=== PATIENT | female | born 1970 | race Caucasian/White ===

== ENCOUNTER 2018-12-12 13:42 | Outpatient (CLI) | payer BC, SELFPAY ==
[2018-12-12 14:03] LABS: Bilirubin Negative (Negative); Blood Negative (Negative); Clarity Clear; Glucose Negative (Negative); Ketones Negative (Negative); Leukocyte Esterase Small (Negative); Nitrite Negative (Negative); Specific Gravity 1.015 (1.005-1.025); Urobilinogen 0.2 EU/dL (Up TO 0.2); pH 6.5 (5-8)
[2018-12-12 14:15] LABS: Bacteria Few HPF (Negative); C & S Indicated? C&S Done As Ordered; Casts Negative LPF (Negative); Crystals Negative HPF (Negative); Epithelial Cells Few HPF (Negative); Mucus Negative (Negative); RBC Negative (0-2)
== END 2018-12-12 14:02 ==
PROVIDERS: PCP Family Medicine; Visit Provider Obstetrics & Gynecology
DX: N30.10 Interstitial cystitis (chronic) without hematuria (principal); R10.2 Pelvic and perineal pain
CPT/HCPCS: 81003; 81015; 87086

== ENCOUNTER 2019-05-28 15:19 | Outpatient (CLI) | payer BC, SELFPAY ==
--- NOTE | 2019-05-28 15:18 | DI.RAD_ITS ---
EXAM: XR HIP LT AP LAT ONLY INDICATION: worsening deep left hip pain. COMPARISON: PELVIS AP from 06/22/2016 PELVIS AP from 07/08/2016 PELVIS AP from 07/08/2016 TECHNIQUE: 2D digital imaging was performed. FINDINGS: There has been no change in the alignment of the left hip prosthesis. No new bony lucencies are see n.
== END 2019-05-28 15:39 ==
PROVIDERS: PCP Family Medicine; Visit Provider Student in an Organized Health Care Education/Training Program
DX: M25.552 Pain in left hip (principal); Z96.642 Presence of left artificial hip joint
CPT/HCPCS: 73502

== ENCOUNTER 2019-08-09 07:00 | Outpatient (CLI) | payer BC, SELFPAY ==
--- NOTE | 2019-08-09 | DI.RAD_ITS ---
EXAM: RF JOINT INJECTION FLUORO GUID CLINICAL HISTORY: PAIN- L HIP INJ UNDER FLUORO,m70.62 TECHNIQUE: COMPARISON: No exams were available for comparison FINDINGS: Fluoroscopy was utilized by Dr. Chan during left hip injection. Hard copy shows needle placement adjacent to THR on the left. IMPRESSION:
[2019-08-09] MEDS: methylPREDNISolone ACETATE 80 MG/ML VIAL IM (14:29)
[2019-08-09] MEDS: Bupivacaine 0.5% Pres-Free 10 ML VIAL 6 ML IJ (14:30)
--- NOTE | 2019-08-09 14:38 | W.PROCNOTE ---
Date of service: 08/09/19 Time of Service: 13:38 Procedure Note Date of procedure: 08/09/19 Procedure: Left hip aspiration and injection Surgeon/Proceduralist/Physician: Sarthak Chan Procedure Diagnosis: Left Hip pain after hip replacement Procedure Indications: Veronica has had persistent pain of the LEFT hip and groin. Noninvasive measures have been tried. To serve as both diagnostic and therapeutic, an injection under fluoroscopy was recommended. I also would attempt an aspiration at the same time if there was fluid available. I had discussed the risks of the procedure and the patient elected to proceed. Procedure Description: Veronica was greeted in the flouroscopy room. The correct side was identified and the consent was reviewed with the patient and signed. The patient was then placed in the supine position on the fluoroscopy table. The LEFT hip was then prepped with Chloraprep. The anterolateral injection starting point was identiifed by bony landmarks and fluoroscopy. The skin and soft tissue in the tract of the injection was anesthetized with 1% Lidocaine. A spinal needle was then inserted deep into the hip joint at the level of the lateral femoral neck under fluoroscopic guidance. The needle was able to contact the metal surface for tactile confirmation of correct positioning. I was then able to withdraw some joint fluid and send 2 cc of thick and joint fluid to the lab. It was not grossly purulent but it was thicker than I would expect with blood tinge. Next, the hip was injected with 6cc of 0.5% Bupivicaine and 80mg of Depo-Medrol. A bandaid was placed on the injection site. The patient tolerated the procedure well and noted improvement in pre-injection pain.
[2019-08-09 15:35] LABS: Clarity CLOUDY; Nucleated Cells 7091 /MM3 (0-0)
[2019-08-09 15:43] LABS: Mononuclear Cells 77 % (0-0); Polynuclear Cells 23 % (0-0)
== END 2019-08-09 07:20 ==
PROVIDERS: PCP Radiology Radiation Oncology; Visit Provider Student in an Organized Health Care Education/Training Program
DX: T84.84XA Pain due to internal orthopedic prosthetic devices, implants and grafts, initial encounter; Z96.642 Presence of left artificial hip joint; M25.552 Pain in left hip
CPT/HCPCS: 20610; 77002; 87070; 87205; 89051; J1040

== ENCOUNTER 2020-01-14 15:40 | Outpatient (CLI) | payer BC, SELFPAY ==
--- NOTE | 2020-01-14 15:00 | DI.RAD_ITS ---
EXAM: XR KNEE RT 3V AP,LAT,POPPY INDICATION: right knee pain. COMPARISON: No exams were available for comparison TECHNIQUE: 2D digital imaging was performed. FINDINGS: The femoral tibial joint spaces are well maintained. Chondrocalcinosis is seen. There is mild erik articular spurring. A screw is noted in the tibial tubercle. There is severe narrowing of the media l patellofemoral joint. There are adjacent calcifications. Calcification is seen in the suprapatell ar region. IMPRESSION: Severe patellofemoral degenerative changes. Chondrocalcinosis. DATA REPOSITORY: RADIATION DOSE DELIVERED:
== END 2020-01-14 16:00 ==
PROVIDERS: PCP Radiology Radiation Oncology; Visit Provider Physician Assistant Surgical
DX: M25.561 Pain in right knee (principal); M22.2X1 Patellofemoral disorders, right knee; M11.261 Other chondrocalcinosis, right knee
CPT/HCPCS: 73562

== ENCOUNTER 2020-07-01 14:06 | Outpatient (CLI) | payer BC, SELFPAY ==
--- NOTE | 2020-07-01 13:30 | DI.RAD_ITS ---
EXAM: XR STANDING ALIGNMENT and XR knee RT 1 V CLINICAL HISTORY: PRE OP R TKA. TECHNIQUE: 2D digital imaging was performed. COMPARISON: CR XR KNEE RT 3V AP,LAT,POPPY from 01/14/2020 CR XR KNEE RT 1V from 07/01/2020 FINDINGS: The patient has a left total hip replacement. The right hip is well maintained. The left knee shows mild degenerative changes with periarticular spurring in the lateral femoral tibial joint. Marked d egenerative changes are again seen in the right knee with joint space narrowing and periarticular spu rring. Chondrocalcinosis is present. There is again seen a single screw in the anterior tibial tube rcle. There is an ossified density again seen in the suprapatellar region. The ankle joints are wel l maintained. The right lower extremity measures 84.8 cm. The left lower extremity measures 85.5 cm . IMPRESSION: Stable marked degenerative changes of the right knee. DATA REPOSITORY: RADIATION DOSE DELIVERED:
== END 2020-07-01 14:26 ==
PROVIDERS: PCP Radiology Radiation Oncology; Referring Provider Radiology Radiation Oncology; Visit Provider Physician Assistant
DX: M17.11 Unilateral primary osteoarthritis, right knee (principal)
CPT/HCPCS: 73560; 77073

== ENCOUNTER 2020-07-03 00:56 | Outpatient (CLI) | payer BC, SELFPAY ==
[2020-07-03 10:43] LABS: HCT 38.5 % (36.0-46.0); HGB 12.8 g/dL (11.2-15.7); MCH 28.8 pg (27.0-33.0); MCHC 33.2 % (32.0-36.0); MCV 86.7 fL (80-95); MPV 10.2 fL (8.0-11.0); Platelet Count 236 10^3/uL (130-400); RBC 4.44 10^6/uL (3.93-5.22); RDW 12.8 % (11.7-14.6); RDW-SD 40.4 fL; WBC 4.34 10^3/uL (4.4-10.8)
[2020-07-03 11:15] LABS: BUN 14 mg/dL (7-18); CREATININE 0.86 mg/dL (0.55-1.02); Calcium 8.8 mg/dL (8.5-10.1); Chloride 103 mmol/L (98-107); Glucose 81 mg/dL (74-106); Potassium 3.9 mmol/L (3.5-5.1); Sodium 139 mmol/L (136-145)
[2020-07-04 18:53] LABS: COVID-19 RT-PCR UVMMC Result Negative (Negative)
== END 2020-07-03 01:16 ==
PROVIDERS: PCP Radiology Radiation Oncology; Visit Provider Student in an Organized Health Care Education/Training Program
DX: M25.561 Pain in right knee (principal); M17.11 Unilateral primary osteoarthritis, right knee; Z11.59 Encounter for screening for other viral diseases; Z01.818 Encounter for other preprocedural examination; Z01.812 Encounter for preprocedural laboratory examination
CPT/HCPCS: 36415; 80048; 85027; U0003

== ENCOUNTER 2020-07-08 06:16 | Day surgery (SDC) | payer BC, SELFPAY ==
[2020-07-08] VITALS (10 sets, daily range): BP systolic 103–129; BP diastolic 60–77; PULSE 53–84; RESP 16–20; TEMP 36.1–37.4; O2SAT 96–100
[2020-07-08] MEDS: Acetaminophen 500 MG TAB 1000 MG PO ×2 (06:56→14:38)
[2020-07-08] MEDS: Lactated Ringers 1,000 ML 80 ML IV (06:56)
[2020-07-08] MEDS: Gabapentin 300 MG CAP PO (06:57)
[2020-07-08] MEDS: Celecoxib 200 MG CAP 400 MG PO (06:57)
--- NOTE | 2020-07-08 07:19 | DSE_ITS ---
Documented by User: Yumiko Masxon 07/08/20 07:23 DS: Diagnosis Discharge Diagnosis (1) Right knee DJD: Status: Chronic Discharge Plan Disposition Patient Disposition: HOME Condition: Good Discharge Details Reason For Visit: Right knee DJD Attending Provider: Sarthak Chan Primary Care Provider: Viktoriya Li Home Meds and New Rx's Prescriptions: New celecoxib [Celebrex] 200 mg capsule 200 mg PO BID Qty: 60 RF: 0 aspirin 81 mg tablet,delayed release (DR/EC) 81 mg PO BID 30 Days Qty: 60 RF: 0 acetaminophen 500 mg tablet 500 mg PO Q6H PRN (Reason: pain) Qty: 60 RF: 2 pantoprazole 40 mg tablet,delayed release (DR/EC) 40 mg PO DAILY 30 Days Qty: 30 RF: 0 oxycodone 5 mg tablet 5 mg PO Q4H PRN (Reason: severe post-operative pain) Qty: 18 RF: 0 Continued Probiotic 15 billion cell capsule, sprinkle 1 cap PO DAILY RF: 0 pantoprazole 20 mg tablet,delayed release (DR/EC) 20 mg PO DAILY RF: 0 diazepam 5 MG tablet 5 - 10 mg PO Q8H PRN Qty: 30 RF: 1 hydroxyzine HCl 25 MG tablet 50 mg PO HS RF: 0 multivitamin 1 EACH capsule 1 ea PO DAILY RF: 0 L.acidoph, paracasei,B. lactis 1 EACH capsule 1 ea PO DAILY PRN PRNRF: 0 alprazolam [Xanax] 1 MG tablet 1 mg PO PRN PRNRF: 0 amitriptyline 10 mg tablet 50 mg PO HS RF: 0 Cbd Oil liquid 1 ml PO HS PRNRF: 0 Discontinued acetaminophen [Acetaminophen Extra Strength] 500 MG tablet 1,000 mg PO PRN PRNRF: 0 Discharge Instructions Additional Instructions: Total Knee Discharge Instructions Activity: The most important activity is to walk. You should try to take short walks a few times a day. It is important that when resting you work on keeping the knee straight. Avoid putting a pillow behind the knee as this will encourage flexion. Work on range of motion exercises as provided by Physical Therapy. - Start outpatient physical therapy within 2 weeks. - You should wear the IGGY hose on both legs for 2 weeks. Dressing: Keep the surgical dressing in place for at least one week. After the first week it may be removed and replace with light gauze and tape or nothing. It may get wet after 3 days but avoid soaking the dressing. If it gets wet, just lightly pat dry. Medications: - You should take Tylenol and anti-inflammatory Celebrex as your primary pain control medications. If the Celebrex is too expensive or not covered, please call the office for another alternative (Advil/Ibuprofen or Naproxen/Aleve) - You have been prescribed a stronger pain medication Oxycodone for breakthrough pain, take as needed as prescribed. - You have also been prescribed a stomach acid reduction agent Pantoprozole to help reduce stomach acid and reflux. You normally take this medication - please hold your normal pantoprozole and take this higher dose that has been prescribed. - You will be taking Aspirin 81mg twice a day for DVT prevention unless instructed otherwise. - If you have constipation you should take Colace (which was prescribed) or Miralax (which you may purchase [id number]). It takes most people 3-4 days to have a bowel movement. Follow-up: 2 weeks If you have any acute concerns or questions, please do not hesitate to contact the office at [phone]. You may contact Dr. Chan with any questions after hours through the hospital at [phone] or on his cell phone at [phone]. Referrals: Sarthak Chan MD [ [facility] STAFF PHYSICIAN] - Equipment/Supplies: Walker Activity:: Elevate Remove Dressings/Wound Care:: Do Not Remove Shower/Bathe:: 72 hours Diet:: As Tolerated Discharge Orders Discharge Orders: Discharge Order (Routine); Ordered 07/08/20 Ordered By: Sarthak Chan DS: Data Vitals/I&O Vitals and I&O: Vital Signs Temperature 36.6 C 07/08/20 06:27 Pulse 80 07/08/20 06:27 Pulse Rhythm Regular 07/08/20 06:27 Respiratory Rate 16 07/08/20 06:27 Respiratory Depth Normal 07/08/20 06:27 Blood Pressure 123/70 07/08/20 06:27 Pulse Oximetry 100 07/08/20 06:27 Oxygen Delivery Method Room Air 07/08/20 06:27 Oxygen Flow Rate 0 07/08/20 06:27 Pain Level 0 07/08/20 06:27 Intake & Output 07/07/20 07/07/20 07/08/20 11:59 23:59 11:59 Weight 56.5 kg [facility] Medical History Anxiety and depression Asthma Chronic low back pain Congenital hip dysplasia left Endometriosis GERD (gastroesophageal reflux disease) 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 gender identity: female Do you feel safe at home: Yes Do you feel safe in your relationship?: Yes Documented by User: Sarthak Chan MD 07/08/20 13:31 Date of service: 07/08/20 Time of Service: 13:29 Discharge Plan Disposition Patient Disposition: HOME Condition: Good Discharge Details Reason For Visit: Right knee DJD Attending Provider: Sarthak Chan Primary Care Provider: Viktoriya Li Home Meds and New Rx's Prescriptions: New celecoxib [Celebrex] 200 mg capsule 200 mg PO BID Qty: 60 RF: 0 aspirin 81 mg tablet,delayed release (DR/EC) 81 mg PO BID 30 Days Qty: 60 RF: 0 acetaminophen 500 mg tablet 500 mg PO Q6H PRN (Reason: pain) Qty: 60 RF: 2 pantoprazole 40 mg tablet,delayed release (DR/EC) 40 mg PO DAILY 30 Days Qty: 30 RF: 0 oxycodone 5 mg tablet 5 mg PO Q4H PRN (Reason: severe post-operative pain) Qty: 18 RF: 0 Continued Probiotic 15 billion cell capsule, sprinkle 1 cap PO DAILY RF: 0 pantoprazole 20 mg tablet,delayed release (DR/EC) 20 mg PO DAILY RF: 0 diazepam 5 MG tablet 5 - 10 mg PO Q8H PRN Qty: 30 RF: 1 hydroxyzine HCl 25 MG tablet 50 mg PO HS RF: 0 multivitamin 1 EACH capsule 1 ea PO DAILY RF: 0 L.acidoph, paracasei,B. lactis 1 EACH capsule 1 ea PO DAILY PRN PRNRF: 0 alprazolam [Xanax] 1 MG tablet 1 mg PO PRN PRNRF: 0 amitriptyline 10 mg tablet 50 mg PO HS RF: 0 Cbd Oil liquid 1 ml PO HS PRNRF: 0 Discontinued acetaminophen [Acetaminophen Extra Strength] 500 MG tablet 1,000 mg PO PRN PRNRF: 0 Discharge Instructions Additional Instructions: Total Knee Discharge Instructions Activity: The most important activity is to walk. You should try to take short walks a few times a day. It is important that when resting you work on keeping the knee straight. Avoid putting a pillow behind the knee as this will encourage flexion. Work on range of motion exercises as provided by Physical T herapy. - Start outpatient physical therapy within 2 weeks. - You should wear the IGGY hose on both legs for 2 weeks. Dressing: Keep the surgical dressing in place for at least one week. After the first week it may be removed and replace with light gauze and tape or nothing. It may get wet after 3 days but avoid soaking the dressing. If it gets wet, just lightly pat dry. Medications: - You should take Tylenol and anti-inflammatory Celebrex as your primary pain control medications. If the Celebrex is too expensive or not covered, please call the office for another alternative (Advil/Ibuprofen or Naproxen/Aleve) - You have been prescribed a stronger pain medication Oxycodone for breakthrough pain, take as needed as prescribed. - You have also been prescribed a stomach acid reduction agent Pantoprozole to help reduce stomach acid and reflux. You normally take this medication - please hold your normal pantoprozole and take this higher dose that has been prescribed. - You will be taking Aspirin 81mg twice a day for DVT prevention unless instructed otherwise. - If you have constipation you should take Colace (which was prescribed) or Miralax (which you may purchase [id number]). It takes most people 3-4 days to have a bowel movement. Follow-up: 2 weeks If you have any acute concerns or questions, please do not hesitate to contact the office at [phone]. You may contact Dr. Chan with any questions after hours through the hospital at [phone] or on his cell phone at [phone]. Referrals: Sarthak Chan MD [ [facility] STAFF PHYSICIAN] - Equipment/Supplies: Walker Activity:: Elevate Remove Dressings/Wound Care:: Do Not Remove Shower/Bathe:: 72 hours Diet:: As Tolerated Discharge Orders Discharge Orders: Discharge Order (Routine); Ordered 07/08/20 Ordered By: Sarthak Chan DS: Summary Status at Discharge Functional status at discharge: uses cane/walker Overall status at discharge: patient is progressing back to baseline Mental Status: mental status grossly normal Speech and Movement: speech and movement normal Mood: congruent mood Affect: normal affect Exam Psych Mental Status: mental status grossly normal Speech and Movement: speech and movement normal Mood: congruent mood Affect: normal affect [facility] Medical History Anxiety and depression Asthma Chronic low back pain Congenital hip dysplasia left Endometriosis GERD (gastroesophageal reflux disease) 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
[2020-07-08] MEDS: ceFAZolin 2 GM/50 ML BAG IVPB (07:29)
[2020-07-08] MEDS: Bupivacaine 0.25% Pres-Free 30 ML VIAL (08:52)
[2020-07-08] MEDS: Ketorolac 30 MG/ML VIAL (08:52)
[2020-07-08] MEDS: Bupivacaine LIPOSOME/PF 133 MG/10 ML VIAL IJ (08:52)
[2020-07-08] MEDS: Normal Saline 50 ML (08:52)
--- NOTE | 2020-07-08 13:06 | PT.INIE ---
Date of service: 07/08/20 Time of Service: 13:06 PT Notes Visit Reasons: Right knee DJD Physical Therapy Inpatient Initial Evaluation Date: 07/08/2020 Referring Doctor: SKYE Martinez PT Orders: PT CONSULT: Status post Ortho surgery Precautions: Fall. Standard. Patient Profile/Admitting Diagnosis: Veronica is a 49-year-old female with degenerative joint disease of the right knee and is status post right total knee arthroplasty on postoperative day 0. PMHX: Medical History (Updated 07/01/20 @ 09:25 by Yumiko Dill) Anxiety and depression Asthma Chronic low back pain Congenital hip dysplasia left Endometriosis Right knee DJD Surgical History (Updated 07/01/20 @ 13:16 by Yumiko Dill) Colonoscopy - MAC (01/07/17) diskectomy L4,5 EGD - MAC (01/07/17) Hx of dilation and curettage S/P right knee arthroscopy Ankur procedure Total replacement of hip Left Social History/Home Situation: Lives with and 2 sons in a private home with 4 steps to enter with both rails. He has another flight of steps to the bedroom with a rail on the left side going up. Independent with all aspects of ADLs prior to surgery. 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 Equipment Owned/DME: FWW, JOANIE, S[employer] Subjective: Agreeable to PT consult. Reports pain on the medial side of her knee joint during supine to sit but diminished with ambulation activity. Complained of being mildly lightheaded but was able to tolerate mobility assessment on level surface and on the steps. Objective: General Observation: LAURA wraps to R LE. Cryocuff to R knee. TEDS on L leg. IV access to L UE. NUrse Encinas present throughout session. Mental Status: Alert and orientexd x 4 Pain: 3-4/10 in R knee initially Vital Signs: WNL limits before, durin, and immediately after session as monitored by Nurse Encinas ROM: Right Upper Extremity: Shoulder Flexion WFL. Shoulder abduction WFL. Elbow flexion WFL. Wrist flexion WFL. Opening and closing of hand WFL. Left Upper Extremity: Shoulder Flexion WFL. Shoulder abduction WFL. Elbow flexion WFL. Wrist flexion WFL. Opening and closing of hand WFL. Right Lower Extremity: Hip flexion WFL. Hip abduction WFL. Knee flexion 10 to 90 degrees. Knee extension -10 degrees. Ankle dorsiflexion WFL. Ankle plantarflexion WFL. Performed x 10 leg raises with left knee extension lag of about 10 degrees. Left Lower Extremity: Hip flexion WFL. Hip abduction WFL. Knee flexion WFL. Ankle dorsiflexion WFL. Ankle plantarflexion WFL. Strength: Right Upper Extremity: Shoulder flexors 5/5. Shoulder abductors 5/5. Elbow flexors 5/5. Elbow extensors 5/5. Specialized Developer strong. Left Upper Extremity: Shoulder flexors 5/5. Shoulder abductors 5/5. Elbow flexors 5/5. Elbow extensors 5/5. Specialized Developer strong. Right Lower Extremity: Hip flexors 4/5. Hip abductors 4/5. Knee flexors 3-/5. Knee extensors 3-/5. Ankle dorsiflexors 5/5. Ankle plantarflexors 5/5. Left Lower Extremity:Hip flexors 5/5. Hip abductors 5/5. Knee flexors 5/5. Knee extensors 5/5. Ankle dorsiflexors 5/5. Ankle plantarflexors 5/5. Sensation: Intact as to pain and pressure on bilateral lower extremities. Bed Mobility/Transfers: Rolling supervision Supine to sit supervision Sit to stand contact-guard assist Stand to sit contact-guard assist Bed to chair contact-guard assist Chair to bed contact-guard assist with Gait: Guided through level surface ambulation of 200 feet with contact-guard assist of PT and wheelchair follow of nurse Encinas for safety. Step through gait pattern. Ct decreased. Stairs: Up and down 24 x 4 inch steps while holding onto 1 rail with hand-held assist of PT led report of increased discomfort and the right knee that subsided with rest. THERA EX: Patient training on seated level exercises consisting of a week use x10, seated x10, seated hip abduction/adduction, and ankle circles x20. Balance: Static Sitting: Normal Dynamic Sitting: Normal Static Standing: Fair Dynamic Standing: Fair Special Tests: Mobility Limitations Standardized Measure [facility] AM-PAC 6 clicks Basic Mobility Inpatient Short Form: Raw Score: 21 CMS Score: 29% deficit Informed Consent/Education: Patient instructed in purpose of PT consult and plan of care. Assessment: Veronica requires the use of a front-wheeled walker for all mobility ADL performance to maximize independence and reduce fall risk at home. She will benefit from outpatient physical therapy services in order to facilitate return to independent mobility performance without an assistive device. Patient presents with clinical signs and symptoms consistent with current/admitting diagnoses that have resulted to mobility limitations, gait instability, generalized weakness, and impairment of motor control as demonstrated by the following impairment level findings: 1. Decreased strength to right knee major muscle groups 2. Impaired standing balance 3. Impaired activity tolerance 4. Limitation of joint range of motion in right knee Impairments are contributing to the following functional limitations: 1. Inability to safely ambulate without assistive device 2. Increase completion time for mobility ADL performance 3. Increased fall risk 4. Inability to negotiate steps alone safely Patient is assessed as a 65827 moderate complexity based on the following: History: 49-year-old female with impairment level findings, functional limitations, and past medical history as indicated above Examination: Demonstrable impairment in strength, balance, and mobility level with underlying impairments and functional limitations as documented above Presentation:Evolving Decision Makin moderate complexity Goals: N/A. PT evaluation and 1 treatment session for mobility ADL training using the front wheeled walker and for HEP instruction. Plan of Care/Treatment Plan: N/A. PT evaluation and 1 treatment session for mobility ADL training using the front wheeled walker and for HEP instruction. DISCHARGE RECOMMENDATIONS: Home when medically cleared by orthopedic surgeon. Outpatient PT services in order to facilitate return to independent level without an assistive device and maximize functional outcomes. TREATMENT CODE/TIME: 27825 x 25 minutes, 98799 x 17 minutes beginning at 13:06 PM. Thank you for the opportunity to participate in the care of this patient. Abigail Carmona PT, DPT, CLT [facility] [place], [place]
--- NOTE | 2020-07-08 19:24 | ROE_ITS ---
Date of service: 07/08/20 Time of Service: 09:24 Operative Note Operative Note DATE OF PROCEDURE: 07/08/20 PRE-OP DIAGNOSIS: Right Knee Arthritis POST-OP DIAGNOSIS: other Right Knee Arthritis and Partial quadriceps tear PROCEDURE: Right Total Knee Replacement with repair of partial quadriceps tear SURGEON: Sarthak Chan [employer]ULT [employer] INSTRUCTOR: Yumiko Dill ANESTHESIA: regional and spinal ESTIMATED BLOOD LOSS: 200 PATHOLOGY: none sent TOURNIQUET TIME: 0 COMPLICATIONS: None Patient was transported to: PACU Patient's condition: stable Implants: 1. Depuy Attune Cementless Cruciate Retaining Femoral Component, Size 4 Narrow 2. Depuy Attune Cementless Rotating Platform Tibial Component, Size 2 3. Depuy Attune 4x6mm CR/RP Poly 4. Depuy Attune Patellar Component, Size 35mm Indications: I have seen Veronica in clinic for symptoms of knee arthritis, confirmed with radiographic findings. She has exhausted nonoperative methods and was having significant limitations in daily function and desired better function and less pain. I discussed the technical details of a knee replacement. I explained the risks of the procedure to include, but not limited to, bleeding, infection, pain, stiffness, fracture, damage to nerves and vessels, damage to muscles and tendons, loosening, need for repeat procedure, blood clot and cardiopulmonary demise. Despite these risks, Veronica elected to proceed. Findings: There was significant signs of arthritis throughout the knee. These involved all 3 compartments, the patellofemoral compartment being the worst. During exposure there was an unexpected finding off of the superior pole of the patella. There was an obvious chronic, partial tear of the quadriceps tendon off of the superior pole with the surface of the unattached tendon and the superior pole was smooth and had a bursal type surface to it. Procedure Description: Veronica was greeted in the preoperative holding area where the correct side was identified and marked. The consent was reviewed with the patient and signed. The history and physical was updated. All questions were answered. Preoperative medications were administered: Acetaminophen 1000mg, Celebrex 400mg, and Gabapentin 300mg. An adductor canal block was then administered by the anesthesia team in the PACU. Veronica was taken back to the operating room. A spinal anesthestic was then administered. The patient was placed into the supine position on the operating room table. A nonsterile tourniquet was placed high onto the leg but only used for cementing. Posts were placed for positioning during the procedure. All bony prominences were well padded. Prophylactic antibiotics in the form of Cefazolin were administered. 1g of Tranxemic Acid was given intravenously within 30 minutes of incision. The right leg was then prepped with Chloraprep and draped in a standard fashion with impervious stockinette. A second prep with Chloraprep was performed prior to application of Iodine impregnated skin protection. A timeout to confirm correct identity, side and site, procedure, allergies, anesthesia, and medical concerns was performed. With the knee in some flexion, a midline incision was made overlying the knee through the previous incision from her patella realignment procedure. Full thickness skin flaps were raised once the extensor mechanism was encountered. These were raised medially and laterally. Any bleeding was controlled with electrocautery. Once the extensor mechanism was fully exposed, a medial parapatellar arthrotomy was performed in a flexed position. All bleeding from the arthrotomy and the geniculate arteries were coagulated. A medial subperiosteal peel was performed with electrocautery to the midcoronal plane. The fat pad was removed while ke eping the patellar tendon protected. The anterior distal femur synovium was removed for later visualization. The ACL and PCL were resected and the anterior horn of the lateral meniscus was transected. The knee was then flexed with the patella everted. At this piont, there was an obvious unexpected finding at the superior pole of the patella. There was a partial tear of the quadriceps tendon where there was no attachment of the quadriceps on the superior pole of the patella. There was even some detachment from the superior half of the anterior patella. These surfaces had a glossy, thickened surface suggestive of this being a chronic injury. There wasn't any significant tendon edge seen retracted but there was a diminuitive edge centrally which likely represented the previously torn central fibers. I used a rongeur to debride the underside of the tendon and the anterior and superior aspect of the patella of all of the glossy surfaces to encourage healing from later repair. Osteophytes from around the patella were removed. Large osteophytes from the tibia were removed. Large osteophytes from the femur were removed. Using a step drill, and based on preoperative templating, the femoral canal was entered. This was done with a step drill without any difficulty. The intramedullary distal femoral cut guide was inserted, set to a 5 degree valgus cut and 9mm cut thickness. The distal femoral cut guide was then held in position and pinned. With the soft tissues protected, the distal cut was performed. This was passed over a few times to ensure a planar cut. I then turned attention to the tibia. The extramedullary guide was placed onto the leg. The distal aspect was slid medial to adjust for position of center of ankle and stay in line with shaft of the tibia. Approximately 3-5 degrees of posterior slope was kept in the proximal cutting guide. The center of the guide was aligned with the PCL. The stylus was used to assess cut thickness. The medial side, most involved side, was set for a 4mm cut. This was then held in position and pinned into place with 2 additional pins and a cross pin for stability. The medial and lateral collateral ligaments were protected and the cut was performed. With this completed, it was assessed and noted to be of appropriate dimensions. The guide was removed. A spacer block was inserted and the knee was brought into extension. The 6mm spacer block provided full extension, without hyperextension and with stability of both the medial and lateral collateral ligaments was assessed. The pins from the femur and the tibia were then removed. The distal femur was then sized. The anterior stylus was placed onto the lateral ridge of the anterior femur. This indicated a size 4 femur. The external rotation of the guide was adjusted to 3 degrees to match the epicondylar axis, perpendicular to Carter?s line. The 4-in-1 cutting guide was the placed. The posterior medial femur cut was evaluated and appeared of good thickness. The spacer block was inserted underneath the cutting guide and stability was confirmed in 90 degrees of flexion. An raj wing was used to confirm appropriate position of the anterior cut to avoid notching. This cutting guide was ensured to be flush on the cut surface and then pinned into place with headed pins. While protecting the soft tissues, quad tendon, and collateral ligaments, the anterior and posterior cuts were performed with a saw. The central two pins were removed and the posterior and anterior chamfers were cut next. The notch-cutting guide was placed. This was pinned to lateralize the femoral component as much as possible while keeping it flush on the cut surface. This was then pinned into position. A reciprocating saw was used to make the notch cut. A rasp smoothed the cut surfaces. The medial and lateral menisci were removed. A trial femoral component was then inserted, impacted down to the cut surfaces, and the lug holes were drilled. A provisional trial tibial component was placed and the knee was brought through range of motion. There was noted to be excellent extension and flexion. There was no significant instability. The patella was tracking without thumbs. A size 6mm polyethylene component provided the best range of motion and stability with less than 2mm gapping with medial and lateral stress and full extension without significant hyperextension. The tibial cut surface was fully exposed. The tibia was then sized as a 2. The tibia had been previously marked during trialing to correspond to the center of the tibial component to help with rotation. The trial was aligned to this vipin, approximately rotated to the medial 1/3rd of the tibial tubercle. The trial was pinned into place. The tibia was prepared with a reamer and a keel punch and lug holes. The knee was then brought into extension and the patella was measured as 24mm. Using the patellar clamp and cut guide, this was resected to a flat surface with at least 13mm of thickness remaining. The size 35 patella fit the best. This was oriented and then clamped into position. The lugs were drilled. This is an option. I then performed a repair of this quadriceps defect. Given the chronicity, I was not sure that it would necessarily need to complete quadriceps repair and she did have intact knee function prior to this. However, I was suspected now that it could be causing some of her pain. Given that the tendon was elevated off of the anterior superior aspect of the patella the surfaces were previously roughened. I then placed two #2 FiberWire sutures in a locking Krak?w fashion through the tendon. I mobilized the deeper central fibers and join them to the more superficial fibers and full-thickness bites. I placed three 1.5 mm drill holes through the superior edge of the patella and passing sutures through the superior edge of patella reapproximating this tendon down to bone. These drill holes were placed slightly more anteriorly and aimed in a posterior direction. The sutures were then pulled tight which reapproximated the tendon down to the patella. These were then tied over the patella. The knots were directed superiorly to be in the very superior edge of the patella button within the cement. The trial components were removed. The final components were opened on the back table. The periosteal and capsular tissues, especially posteriorly, around the knee were then systematically injected with a periarticular cocktail consisting of 50cc 0.25% Marcaine, 30mg Ketorolac, 20cc of Exparal and 50cc of injectable saline. The knee was thoroughly irrigated with a pulse lavage and dried. Irrisept was also used to irrigate the tissues. On the back table, with the implants opened, the cement was mixed. One batche of high viscosity cement were prepared with vacuum assistance. After the cement was ready a small amount was placed on the cut surface of the patella and the patellar button was clamped into position and held. During this process attention was turned to the gutters of the knee and for all interfaces for any excess cement. While the cement was hardening, the cementless knee components were placed. Starting with the tibial component, the tibia was subluxed anteriorly and the lug holes of the component were lined up. The tibia was then impacted with an impactor and mallet until the tibial component was in contact with the tibia. The final polyethylene component was inserted. Then, the femoral component was inserted. The lug holes were aligned and the component was impacted into position. The knee was irrigated with Irrisept chlorhexadine solution. This was allowed to sit in the knee for 3 minutes. After the cement had finally cured, approximately 15min, the clamp was removed from the patella and the knee was taken through range of motion. The patella was tracking with a no-thumbs technique. The capsule was then reapproximated with a No. 1 Vicryl at multiple locations. The capsule was finally closed with a No. 2 Stratafix, barbed suture. The tourniquet was then released and the arthrotomy appeared watertight without significant bleeding. The second dosing of 1g TXA was started. Deep tissues were then reapproximated with 0 Vicryl and 2-0 Vicryl. The skin was closed with a running 3-0 Monocryl in a subcuticular fashion. This was reinforced with skin glue. A Mepilex silver dressing was applied along with a [id number] LAURA wrap. A CryoCuff was applied. Veronica was transferred to the hospital bed without difficulty an suffering no apparent complication. Veronica has a good prognosis. Physical therapy will start today and without restrictions, weight-bearing as tolerated. Aspirin 81mg BID will be used for DVT prophylaxis.
== END 2020-07-08 15:17 | disposition home or self-care (01) ==
PROVIDERS: PCP Radiology Radiation Oncology; Visit Provider Student in an Organized Health Care Education/Training Program
PROC: (CPT 27447; principal; 2020-07-08 07:30)
DX: M17.11 Unilateral primary osteoarthritis, right knee (principal); M25.561 Pain in right knee; M66.851 Spontaneous rupture of other tendons, right thigh; G89.18 Other acute postprocedural pain; Z96.651 Presence of right artificial knee joint; K21.9 Gastro-esophageal reflux disease without esophagitis
CPT/HCPCS: 27447; 27385; C1776; 76942; 97162; 97530; NC; J0690; J1885; J2250; J2405

== ENCOUNTER 2020-07-21 15:40 | Outpatient (CLI) | payer BC, SELFPAY ==
--- NOTE | 2020-07-21 14:00 | DI.RAD_ITS ---
EXAM: XR STANDING ALIGNMENT CLINICAL HISTORY: s/p right TKA. TECHNIQUE: 2D digital imaging was performed. COMPARISON: There similar x-rays performed 07/01/2020 FINDINGS: There has been interval placement a right knee prosthesis. Again noted is a left hip prosthesis. Ri ght hip remains unremarkable in appearance. Minimal degenerative changes in the left knee, unchanged . Left ankle appears unremarkable. Tilting the right talar dome is noted. There are no osteochondr al defects in either talar dome evident. IMPRESSION: DATA REPOSITORY: RADIATION DOSE DELIVERED:
--- NOTE | 2020-07-21 14:00 | DI.RAD_ITS ---
EXAM: XR KNEE RT 1V CLINICAL HISTORY: s/p right TKA. TECHNIQUE: 2D digital imaging was performed. COMPARISON: 07/01/2020 FINDINGS: Single lateral view compare 07/01/2020 reveals interval placement a prosthesis with satisfactory posi tion alignment of the components of the prosthesis on the single view. There has been patellar resur facing. There is prepatellar soft tissue swelling. An AP orientated screw at the tibial tubercle le tashi is again noted. Dystrophic calcifications again noted in the quadriceps tendon region. IMPRESSION: DATA REPOSITORY: RADIATION DOSE DELIVERED:
== END 2020-07-21 16:00 ==
PROVIDERS: PCP Radiology Radiation Oncology; Referring Provider Radiology Radiation Oncology; Visit Provider Physician Assistant
DX: Z96.651 Presence of right artificial knee joint (principal)
CPT/HCPCS: 73560; 77073

== ENCOUNTER 2020-10-03 11:08 | Outpatient (CLI) | payer BC, SELFPAY ==
--- NOTE | 2020-10-03 10:30 | DI.RAD_ITS ---
EXAM: XR KNEE RT 3V AP,LAT,POPPY CLINICAL HISTORY: R TKA pain TECHNIQUE: COMPARISON: CR XR KNEE RT 1V from 07/01/2020 CR XR STANDING ALIGNMENT from 07/21/2020 CR XR KNEE RT 1V from 07/21/2020 FINDINGS: Three views were obtained and show total knee joint replacement in position. The components appear w ell seated. Note is also made of a previously described fixation screw of the anterior tibial tuberc le. There is an apparent knee joint effusion. A small ossific fragment projected superior to the patella on prior radiographs of July 21 now lies a little more superiorly, but unchanged in position in comparison with pre operative examination of July 01. This is of uncertain significance, plea se correlate clinically regarding any indication of quadriceps tendon tear. IMPRESSION: RADIATION DOSE DELIVERED: Total DLP
== END 2020-10-03 11:09 | disposition home or self-care (01) ==
LOC: DIORS 11:08
PROVIDERS: PCP Radiology Radiation Oncology; Referring Provider Radiology Radiation Oncology; Visit Provider Student in an Organized Health Care Education/Training Program
DX: M25.561 Pain in right knee (principal); Z96.651 Presence of right artificial knee joint; Z47.1 Aftercare following joint replacement surgery; M25.461 Effusion, right knee
CPT/HCPCS: 73562

== ENCOUNTER 2020-10-08 02:40 | Outpatient (CLI) | payer BC, SELFPAY ==
[2020-10-08 10:42] LABS: Source Nasal/Nares
[2020-10-08 14:53] LABS: COVID-19 PCR Negative (Negative)
== END 2020-10-08 02:41 | disposition home or self-care (01) ==
LOC: LBO 02:40
PROVIDERS: PCP Radiology Radiation Oncology; Visit Provider Student in an Organized Health Care Education/Training Program
DX: Z20.822 Contact with and (suspected) exposure to COVID-19 (principal); Z01.818 Encounter for other preprocedural examination
CPT/HCPCS: 87635

== ENCOUNTER 2020-10-10 10:13 | Day surgery (SDC) | payer BC, SELFPAY ==
[2020-10-10] VITALS (14 sets, daily range): BP systolic 121–143; BP diastolic 66–97; PULSE 61–84; RESP 12–29; TEMP 36.2–37; O2SAT 95–100
[2020-10-10] MEDS: Celecoxib 200 MG CAP 400 MG PO (10:55)
[2020-10-10] MEDS: Acetaminophen 500 MG TAB 1000 MG PO (10:55)
[2020-10-10] MEDS: Lactated Ringers 1,000 ML 80 ML IV (10:56)
[2020-10-10] MEDS: Gabapentin 300 MG CAP PO (10:56)
--- NOTE | 2020-10-10 11:36 | W.PM.DSUDISC ---
Documented by User: Yumiko Dill 10/10/20 11:44 Discharge Plan Disposition Patient Disposition: HOME Condition: Good Discharge Details Reason For Visit: Right Knee Arthroscopic Synovectomy Attending Provider: Sarthak Chan Primary Care Provider: Viktoriya Li Home Meds and New Rx's Prescriptions: New hydrocodone-acetaminophen 5-325 mg tablet 1 tab PO Q6H PRN (Reason: severe pain) Qty: 6 RF: 0 Continued Probiotic 15 billion cell capsule, sprinkle 1 cap PO DAILY RF: 0 celecoxib [Celebrex] 200 mg capsule 200 mg PO BID Qty: 60 RF: 3 Narcan 4 mg/actuation spray,non-aerosol 4 mg intranasal Q2M PRN (Reason: opioid overdose) Qty: 2 RF: 0 lorazepam 1 mg tablet 1 mg PO TID PRN (Reason: spasm and nausea) Qty: 21 RF: 0 hydroxyzine HCl 25 MG tablet 50 mg PO HS RF: 0 multivitamin 1 EACH capsule 1 ea PO DAILY RF: 0 alprazolam [Xanax] 1 MG tablet 1 mg PO PRN PRNRF: 0 amitriptyline 10 mg tablet 50 mg PO HS RF: 0 acetaminophen 500 mg tablet 500 mg PO Q6H PRN (Reason: pain) Qty: 60 RF: 2 Discharge Instructions Additional Instructions: Knee Manipulation Discharge Instructions Activity: You should begin moving as soon as possible. You may work on flexion but also equally maintain extension. You may bear weight as tolerated, using crutches only for support/comfort. You should apply ice to help with swelling and elevate when possible (especially in the first few days). Dressings: The knee dressing may come down after 48 hours. You may shower and get the wound wet at that time. You should keep the wounds covered with a band-aide until follow-up. Medications: - Rarely does this require any stronger pain medications. - Recommend to take up to 1000mg of Acetaminophen (Tylenol) as needed. Continue to take your Celebrix as prescribed. Narcotic pain medication was prescribed to you as well to take only as needed for breakthrough pain. Follow-up: 7-10 days Referrals: Sarthak Chan MD [ [facility]FF [facility]YSICIAN] - Equipment/Supplies: Partial Weight Bearing Crutches Activity:: Elevate Remove Dressings/Wound Care:: 48 hours Shower/Bathe:: 48 hours Diet:: As Tolerated Discharge Orders Discharge Orders: Discharge Order (Routine); Ordered 10/10/20 Ordered By: Yumiko Dill DS: Diagnosis Discharge Diagnosis (1) Arthrofibrosis of total knee arthroplasty: Status: Acute (2) Status post total right knee replacement: Status: Acute Documented by User: Sarthak Chan MD 10/10/20 13:06 Discharge Plan Disposition Patient Disposition: HOME Condition: Good Discharge Details Reason For Visit: Right Knee Arthroscopic Synovectomy Attending Provider: Sarthak Chan Primary Care Provider: Viktoriya Li [facility] Meds and New Rx's Prescriptions: New hydrocodone-acetaminophen 5-325 mg tablet 1 tab PO Q6H PRN (Reason: severe pain) Qty: 6 RF: 0 Continued Probiotic 15 billion cell capsule, sprinkle 1 cap PO DAILY RF: 0 celecoxib [Celebrex] 200 mg capsule 200 mg PO BID Qty: 60 RF: 3 Narcan 4 mg/actuation spray,non-aerosol 4 mg intranasal Q2M PRN (Reason: opioid overdose) Qty: 2 RF: 0 lorazepam 1 mg tablet 1 mg PO TID PRN (Reason: spasm and nausea) Qty: 21 RF: 0 hydroxyzine HCl 25 MG tablet 50 mg PO HS RF: 0 multivitamin 1 EACH capsule 1 ea PO DAILY RF: 0 alprazolam [Xanax] 1 MG tablet 1 mg PO PRN PRNRF: 0 amitriptyline 10 mg tablet 50 mg PO HS RF: 0 acetaminophen 500 mg tablet 500 mg PO Q6H PRN (Reason: pain) Qty: 60 RF: 2 Discharge Instructions Additional Instructions: Knee Manipulation Discharge Instructions Activity: You should begin moving as soon as possible. You may work on flexion but also equally maintain extension. You may bear weight as tolerated, using crutches only for support/comfort. You should apply ice to help with swelling and elevate when possible (especially in the first few days). Dressings: The knee dressing may come down after 48 hours. You may shower and get the wound wet at that time. You should keep the wounds covered with a band-aide until follow-up. Medications: - Rarely does this require any stronger pain medications. - Recommend to take up to 1000mg of Acetaminophen (Tylenol) as needed. Continue to take your Celebrix as prescribed. Narcotic pain medication was prescribed to you as well to take only as needed for breakthrough pain. Follow-up: 7-10 days Referrals: Sarthak Chan MD [ [facility]FF PHYSICIAN] - Equipment/Supplies: Partial Weight Bearing Crutches Activity:: Elevate Remove Dressings/Wound Care:: 48 hours Shower/Bathe:: 48 hours Diet:: As Tolerated Discharge Orders Discharge Orders: Discharge Order (Routine); Ordered 10/10/20 Ordered By: Yumiko Dill
[2020-10-10] MEDS: ceFAZolin 2 GM/50 ML BAG IVPB (11:58)
[2020-10-10] MEDS: Lactated Ringers 1,000 ML 30 ML IV (11:58)
[2020-10-10] MEDS: Bupivacaine 0.25% Pres-Free 30 ML VIAL (12:51)
--- NOTE | 2020-10-10 13:15 | ROE_ITS ---
Date of service: 10/10/20 Time of Service: 13:15 Operative Note Operative Note DATE OF PROCEDURE: 10/10/20 PRE-OP DIAGNOSIS: Right Knee Synovitis POST-OP DIAGNOSIS: same PROCEDURE: Arthroscopic Right Knee Synovectomy SURGEON: Sarthak Chan ANESTHESIA TYPE: General LMA/ETT Refer to Anesthesia Record ESTIMATED BLOOD LOSS: 5 PATHOLOGY: none sent TOURNIQUET TIME: 0 COMPLICATIONS: None Patient was transported to: PACU Patient's condition: stable Indications: I have seen Veronica in clinic for continued pain and swelling with some crepitus of the right knee after knee replacement. She has been diligent physical therapy continues to have limitations without overt signs of infection or other notable complication. Given the continued fullness and swelling about the knee and her pain with some crepitus I offered his arthroscopic knee synovectomy. I reviewed the risks of the procedure to include, but not limited to, bleeding, infection, pain, stiffness, damage to nerves or vessels, recurrence, blood clot. Despite these risks, the patient elected to proceed. Findings: A diagnostic arthroscopy was performed which demonstrated significant inflammatory change within the knee itself. There is no gross signs of purulence. An aspirate of fluid was taken prior to beginning the case and was sent to the lab. The quadriceps insertion onto the patella was inspected and showed no signs of discontinuity or tearing. There was some mild scarring which was released with electrocautery. No signs of component loosening. At the end of the case her knee was ranged and it showed excellent range of motion from 0 to 140 degrees. Procedure Description: Veronica was greeted in the preoperative holding area where the correct side was identified and marked. The consent was reviewed with the patient and signed. The history and physical was updated. All questions were answered. Veronica was taken back to the operating room. The patient was placed into the supine position on the operating room table. A nonsterile tourniquet was placed high onto the leg but not used. All bony prominences were well padded. Prophylactic antibiotics in the form of cefazolin were administered. The right leg was then prepped with Chloraprep and draped in a standard fashion with stockinette and extremity drape. A timeout to confirm correct identity, side and site, procedure, allergies, anesthesia, and medical concerns was performed. The leg was placed into a pneumatic leg barriga, SPIDER2. A standard lateral portal was made at the lateral border of the patella tendon in line with the inferior pole of the patella, soft spot. The skin and deep tissue was incised sharply and the blunt trochar was inserted atraumatically. A diagnostic arthroscopy was performed and the findings are listed above. The suprapatellar pouch had some notable inflammatory changes seen as well as some scarring and adhesions between the quadriceps and the anterior femur, however, there was still a significant amount of suprapatellar pouch. There is no obvious defect in the quadriceps tendon and the patella appear to be localized into the trochlea. I then established a superolateral portal with a spinal needle. My office used to incise the deep tissues and electrocautery was inserted through this portal site to release the adhesions between the quadriceps and the anterior femur. This release of some scar tissue was extended medially and laterally such that the suprapatellar pouch is able to open up completely. I then switched my viewing portal sites to evaluate the quadriceps insertion on the patella after debriding the scarring from around patellar button. Patella button fully exposed there is no defect appreciated about the quadricep and its insertion to the patella. There is no defect seen of the retinaculum either me dially or laterally. With a spinal needle, I localize an anteromedial portal. Once again, a electrocautery device was used to clean up scar tissue. There was notable scarring and inflammation seen within the medial gutter. I flexed the knee the 9 degrees where the patella centrally within the trochlea. There is no signs of impingement tissue. Once again, the quadriceps is also inspected and showed no signs of liftoff from the patella. The arthroscope was brought back into the suprapatellar pouch and the leg was in full extension. The knee was thoroughly irrigated with the arthroscopic fluid on high flow and pressure. Inflow was stopped and excess fluid was removed. The wounds were closed with 4-0 Nylon. I then moved the knee to test range of motion. I was able to gain full ex tension and flex to nearly 140 degrees without any significant difficulty. I injected the portal sites and the soft tissue as well as the joint of the knee with 0.25% bupivacaine. The wounds were then dressed with Xeroform, 4x4 gauze, ABD pad, Kerlix and an LAURA wrap. A cryo-cuff was applied. The patient tolerated the procedure well and was returned to the Same Day Surgery area in a stable condition suffering no known complication.
[2020-10-10] MEDS: fentaNYL 100 MCG/2 ML VIAL IVP ×2 (13:22→13:48)
[2020-10-10] MEDS: Ketorolac 15 MG/ML VIAL (14:05)
[2020-10-10 15:05] LABS: Clarity Cloudy; Mononuclear Cells 67 %; Nucleated Cells 665 uL (0); Other Cells 2 %; Polynuclear Cells 31 %
== END 2020-10-10 15:55 | disposition home or self-care (01) ==
PROVIDERS: PCP Radiology Radiation Oncology; Visit Provider Student in an Organized Health Care Education/Training Program
PROC: (CPT 29870; principal; 2020-10-10 11:30)
DX: T84.82XA Fibrosis due to internal orthopedic prosthetic devices, implants and grafts, initial encounter (principal); Z96.651 Presence of right artificial knee joint
CPT/HCPCS: 29884; 87070; 87205; 89051; J0131; J0690; J1100; J1885; J2001; J2250; J2405; J3010

== ENCOUNTER 2021-01-07 14:22 | Outpatient (REF) | payer BC, SELFPAY ==
[2021-01-07 15:33] LABS: Clarity Cloudy; Nucleated Cells 772 uL (0)
[2021-01-07 16:32] LABS: Mononuclear Cells 81 %; Polynuclear Cells 19 %
== END 2021-01-07 14:23 | disposition home or self-care (01) ==
LOC: LBN 14:22
PROVIDERS: PCP Radiology Radiation Oncology; Visit Provider Student in an Organized Health Care Education/Training Program
DX: M25.561 Pain in right knee (principal); T84.84XS Pain due to internal orthopedic prosthetic devices, implants and grafts, sequela; Z96.651 Presence of right artificial knee joint
CPT/HCPCS: 87070; 87205; 89051

== ENCOUNTER 2021-07-10 14:51 | Outpatient (REF) | payer BC, SELFPAY ==
[2021-07-13 09:57] LABS: COVID-19 RT-PCR UVMMC Result Negative (Negative)
== END 2021-07-10 14:52 | disposition home or self-care (01) ==
LOC: LBN 14:51
PROVIDERS: PCP Radiology Radiation Oncology; Visit Provider Physician Assistant Medical
DX: Z20.822 Contact with and (suspected) exposure to COVID-19 (principal); J06.9 Acute upper respiratory infection, unspecified
CPT/HCPCS: U0003

== ENCOUNTER 2021-10-09 01:59 | Outpatient (CLI) | payer BC, SELFPAY ==
[2021-10-09 11:30] LABS: Source Nasal/Nares
[2021-10-09 14:07] LABS: COVID-19 PCR Negative (Negative)
== END 2021-10-09 02:00 | disposition home or self-care (01) ==
PROVIDERS: PCP Radiology Radiation Oncology; Visit Provider Nurse Practitioner Family
DX: Z20.822 Contact with and (suspected) exposure to COVID-19 (principal); Z01.818 Encounter for other preprocedural examination
CPT/HCPCS: 87635

== ENCOUNTER → 2023-05-11 03:23 | Outpatient (CLI) | payer BC, SELFPAY ==
--- NOTE | 2023-05-11 07:00 | DI.RAD_ITS ---
Exam(s) RF BARIUM SWALLOW EXAM: RF BARIUM SWALLOW CLINICAL HISTORY: globus and pressure at CP level,PHARYNGOESOPHAGEAL DYSPHAGIA,R13.14 TECHNIQUE: 2D and realtime digital imaging was performed. CONTRAST MATERIAL: Thick and thin barium and barium tablet were administered. COMPARISON: MR MRI - CERVICAL SPINE WO CONT from 04/23/2016 FINDINGS: The PA and lateral chest films show normal heart size and clear lung adrian. The lateral dairy truck driver view of the neck is shows degenerative disc changes at C4-5 and C5-6. There are sm all endplate osteophytes projecting anteriorly. The airway appears intact. No prevertebral soft tis arian swelling. Esophagus: The patient swallowed barium without difficulty. Noevidence for mucosal erosions. Nofold thickening. No mass is visible. Nostricture. Motility: There is a normal primary stripping wave. No tertiary contractions were noted. There is no hiatal hernia. Nogastroesophageal reflux was observed during the exam. IMPRESSION: Normal barium swallow. RADIATION DOSE DELIVERED: rebeca Disla=6.2 mGy
[2023-05-11] MEDS: Barium Sulfate 700 MG TAB PO (09:30)
[2023-05-11] MEDS: Simethicone/Sod Bicarb/Cit Ac, 4 gram PACKET 1 PACKET PO (09:31)
[2023-05-11] MEDS: Barium Sulfate 98% W/W 140 ML BTL PO (09:32)
[2023-05-11] MEDS: Barium Sulfate 60% W/V 355 ML BTL PO (09:32)
== END ==
PROVIDERS: PCP Nurse Practitioner Adult Health; Visit Provider Otolaryngology
DX: R09.A2 Foreign body sensation, throat (principal); R13.14 Dysphagia, pharyngoesophageal phase
CPT/HCPCS: 74221; J3490

== ENCOUNTER 2024-08-14 00:12 | Outpatient (CLI) | payer OTHER, SELFPAY ==
--- NOTE | 2024-08-14 06:30 | DI.US_ITS ---
Exam(s) US NEEDLE LOCAL OTHER WO RAD EXAM: Thyroid nodule meeting criteria for biopsy,ultrasound guided bx,e04.1,r09.a COMPARISON: No exams were available for comparison TECHNIQUE: Ultrasound performed using standard protocol. FINDINGS: Sonography was provided for Dr. Carlos during the performance of a thyroid nodule biopsy. Please re levy to the procedure report for complete details. DATA REPOSITORY:
--- NOTE | 2024-08-14 11:52 | W.PROCNOTE ---
Date of service: 08/14/24 Time of Service: 11:52 Procedure Note Date of procedure: 08/14/24 Procedure: Ultrasound-guided FNA, left thyroid nodule, pathology present Surgeon/Proceduralist/Physician: Rip Carlos Procedure Diagnosis: Left thyroid nodule Procedure Indications: Patient with a left-sided thyroid nodule meeting criteria for biopsy. Options were explained to the patient regarding further management. She elected undergo the above procedure. Verbal consent was obtained prior to the procedure. Risks including bleeding, infection, and need for further treatment were discussed at length. The below was then performed. Procedure Description: The patient was positioned in supine position with her neck slightly extended. She was prepped and draped in appropriate fashion. Ultrasound was used to localize the left-sided thyroid nodule, and then 1% lidocaine with 1/100,000 epinephrine was injected in the skin and subcutaneous tissues overlying the mass. Ultrasound was used to guide a 25-gauge needle into the thyroid nodule, and multiple passes were made through the nodule. Pathology then looked at the specimen ensuring adequate cellularity. 2 additional passes were then made for potential Afirma testing, again under ultrasound guidance. After ensuring adequate hemostasis, sterile dressing was applied. The patient was then allowed to sit, stand, and ambulate. Her vital signs remained stable. She tolerated the procedure without difficulty. She will remove the bandage in a couple of hours. She will avoid anything strenuous today. She will call with any signs of infection or if she does not hear from us with regard to the pathology within 1 week. She may use Tylenol or ibuprofen for discomfort. She had no further questions. She is comfortable with the plan.
--- NOTE | 2024-08-14 12:15 | PAPNONF_PTH ---
PATIENT: Veronica Ovalle LOC: [facility] U#:[id number] AGE/SX: 53/F ROOM: RE08/14/[address]: Rip Carlos MD : [id number] BED: DIS: 08/14/2024 SPEC #: [id number] RECD: 08/14/24 13:10 STATUS: NAIMA REQ #: [id number] KARLA: 08/14/24 12:[address]: Rip Carlos DEPT: [facility] Cytology RECD BY: Louise Gramajo ENTERED: 08/14/24 13:10 SP TYPE: JAMEL DELATORRE DR: Marleny Geronimo Tissues: 1 - BODY FLUID CYTO-FINE NEEDLE ASPIRATE-[facility] Procedures: BODY FLUID CYTO-FINE NEEDLE ASPIRATE-[facility] Comments: [id number] (PATH FNA CONSULT) (REFRIGERATED)
== END 2024-08-14 00:32 ==
LOC: DI 00:13
PROVIDERS: PCP Nurse Practitioner Adult Health; Visit Provider Otolaryngology
DX: E04.1 Nontoxic single thyroid nodule (principal); R09.A2 Foreign body sensation, throat
CPT/HCPCS: 10005; 76942; 88104

== ENCOUNTER 2024-12-31 11:12 | Outpatient (CLI) | payer OTHER, SELFPAY ==
[2024-12-31 11:51] LABS: TSH 1.99 uIU/mL (0.36-3.74)
== END 2024-12-31 11:13 | disposition home or self-care (01) ==
LOC: LBO 11:14
PROVIDERS: PCP Nurse Practitioner Adult Health; Visit Provider Surgery
DX: E89.0 Postprocedural hypothyroidism (principal)
CPT/HCPCS: 36415; 84443

== ENCOUNTER → 2025-06-13 00:37 | Outpatient (CLI) | payer OTHER, SELFPAY ==
--- NOTE | 2025-06-13 | ETT_ITS ---
APPROVED REPORT Exam: Exercise Treadmill Patient Location: Out-Patient Room/Bed: Stress Nurse: Diamond Ram RN Ordering Provider:LUH SAMUELS, Contact Number: [phone] BMI: 22.46 Baseline Rhythm: Sinus Rhythm Indications: chest pain Medical History Medical History: connective tissue disorder, depression, anxiety Cardiac Medications: amitriptyline, hydroxizine, duloxetine, magnesium Allergies: NKA Cardiac Risk Factors: family hx Previous Cardiac Procedures: n/a Pretest Chest Pain Characteristics: Nonanginal chest pain Exercise History: Indeterminate Physical Disabilities: n/a Lung Sounds: Clear to auscultation Heart Sounds: Regular Stress Test Details Test: Exercise stress testing was performed using a Moi protocol. Rest Stress HR Resting HR Supine: 72 bpm Max Heart Rate (APMHR): 168 bpm Resting HR Standin bpm Target HR (85% APMHR): 143 bpm Max HR Achieved: 154 bpm % of APMHR: 92 Recovery HR: 88 bpm HR response to stress: Normal HR response to stress BP Resting BP Supine: 120/68 mmHg Resting BP Standin/70 mmHg Max BP: 180/80 mmHg Recovery BP: 124/68 mmHg BP response to stress: Normal blood pressure response to stress. ECG Resting ECG: Sinus Rhythm Ectopy: n/a Stress ECG: Sinus Tachycardia ST Change: No significant ST segment changes noted Arrhythmia: None Recovery ECG: Sinus Rhythm Recovery ST Change: No significant ST segment changes noted Recovery Arrhythmia: None Clinical Reason for Termination: Target HR Achieved Stress Symptoms: Dyspnea Exercise duration: 08 min33 sec Highest Stage Reached: Stage 3: 3.4 mph at 14% grade. Exercise capacity: 10.16 METs Rate Pressure Product: [id number] Stress ECG Conclusion 1. Resting electrocardiogram was normal 2. Patient exercised on the Moi protocol and completed a workload of 10 METS 3. Normal heart rate and blood pressure response to exercise. The patient achieved 92% of maximal predicted heart rate for age 4. There was no electrocardiographic evidence of myocardial ischemia 5. There were no significant dysrhythmias Stress Test Summary STAGE Time (mins) Speed (mph) Grade (%) HR BP SpO2 SYMPTOMS METS Supine 72 120/68 95 Standing 77 100/70 1 3 1.7 10 109 140/66 94 4.5 2 6 2.5 12 130 150/72 95 mild SOB; 3/10 chest pressure 7 3 9 3.4 14 150 10 1 min recovery 130 166/90 96 3 min recovery 92 180/80 97 6 min recovery 88 124/68 96 . Pt c/o baseline 1/10 chest pressure/tightness on arrival and a max of 3/10 chest pressure/tightness with exercise. Pt also c/o mild SOB with exercise. Test stopped due to patient request due chronic joint injuries. By test end, all symptoms resolved . Pt left asymptomatic in no acute distress.
== END ==
LOC: DI 00:37
PROVIDERS: PCP Nurse Practitioner Adult Health; Visit Provider Nurse Practitioner
DX: R07.9 Chest pain, unspecified (principal)
CPT/HCPCS: 93017